=== PATIENT | female | born 1975 | race Caucasian/White ===

== ENCOUNTER 2020-01-06 07:41 | Day surgery (SDC) | payer OTHER ==
[~2020-01-06] VITALS: Ht 170.2 cm; Wt 103.0 kg
[2020-01-06] MEDS ORDERED: SODIUM CHLORIDE 0.9% 1,000 ML IV SCH (07:43)
[2020-01-06] MEDS ORDERED: PLEASE ENTER ALLERGIES MC SCH (08:00)
[2020-01-06] MEDS ORDERED: CEFAZOLIN 2,000 MG in SODIUM CHLORIDE 0.9% 50 ML IV ONE (08:00)
[2020-01-06 08:25] VITALS: BP 144/68
[2020-01-06] MEDS ORDERED: METO50TA82 PO (08:28)
[2020-01-06 08:42] LABS: BASOPHILS # (AUTO) 0.03 x10^3/uL (0-0.1); BASOPHILS % (AUTO) 1 % (0-1); EOSINOPHILS # (AUTO) 0.06 x10^3/uL (0-0.4); EOSINOPHILS % (AUTO) 1 % (1-7); LYMPHOCYTES # (AUTO) 1.23 x10^3/uL (1-3.4); LYMPHOCYTES % (AUTO) 23 % (22-44); MD NO; MEAN CORPUSCULAR HEMOGLOBIN 24.8 pg (27.0-34.8); MEAN CORPUSCULAR HGB CONC 31.8 g/dL (32.4-35.8); MEAN CORPUSCULAR VOLUME 78.1 fL (80-100); MEAN PLATELET VOLUME 8.8 fL (7.4-10.4); MONOCYTES # (AUTO) 0.42 x10^3/uL (0.2-0.8); MONOCYTES % (AUTO) 8 % (2-9); NEUTROPHILS # (AUTO) 3.72 x10^3/uL (1.8-6.8); NEUTROPHILS % (AUTO) 68 % (42-75); PLATELET COUNT 282 x10^3/uL (130-400); RED CELL DISTRIBUTION WIDTH 17.8 % (9.6-15.2)
[2020-01-06 08:53] LABS: ANION GAP 7 mmol/L (5-15); CALCIUM 9.1 mg/dL (8.5-10.1); CHLORIDE 107 mmol/L (98-107); CREATININE 0.69 mg/dL (0.55-1.02)
[2020-01-06] MEDS ORDERED: FENTANYL PF 100 MCG/2ML ONE (09:02)
[2020-01-06] MEDS ORDERED: CEFAZOLIN 1,000 MG ONE (09:02)
[2020-01-06] MEDS ORDERED: MIDAZOLAM 1 MG/ML, 5ML ONE (09:02)
[2020-01-06] MEDS ORDERED: LIDOCAINE 2%, 20ML ONE (09:02)
[2020-01-06] MEDS ORDERED: DIAZEPAM 5 MG TABLET ONE (10:29)
[2020-01-06] MEDS ORDERED: DIAZEPAM 5 MG TABLET PO ONE (11:00)
== END 2020-01-06 11:40 | disposition home or self-care (01) ==
LOC: CACL 07:41
PROVIDERS: ATTEND Internal Medicine Clinical Cardiac Electrophysiology
DX: Z45.02 Encounter for adjustment and management of automatic implantable cardiac defibrillator (principal); I42.1 Obstructive hypertrophic cardiomyopathy; I50.9 Heart failure, unspecified; Z79.899 Other long term (current) drug therapy; Z88.5 Allergy status to narcotic agent
CPT/HCPCS: 33263; 36415; 71046; 80048; 84702; 85025; 99156; 99157; C1721; J0690; J2250; J3010